=== PATIENT | female | born 1955 ===

== ENCOUNTER 2018-03-19 09:41 | Outpatient (CLI) | payer OTHER ==
[~2018-03-19] VITALS: Ht 152.4 cm; Wt 63.5 kg
== END 2018-03-19 10:00 | disposition home or self-care (01) ==
LOC: OFIC 805 09:41
DX: H80.81 Other otosclerosis, right ear (principal); H90.71 Mixed conductive and sensorineural hearing loss, unilateral, right ear, with unrestricted hearing on the contralateral side; H61.23 Impacted cerumen, bilateral; J31.0 Chronic rhinitis

== ENCOUNTER 2018-03-19 12:22 | Outpatient (CLI) | payer OTHER | END 2018-03-19 12:40 | disposition home or self-care (01) | LOC: TOM 12:22 | DX: H80.81 Other otosclerosis, right ear (principal); H90.71 Mixed conductive and sensorineural hearing loss, unilateral, right ear, with unrestricted hearing on the contralateral side ==